=== PATIENT | male | born 1950 | race Caucasian/White ===

== ENCOUNTER → 2021-07-21 | Outpatient (CLI) | payer OTHER ==
[~2021-07-21] MED LIST: FISH OIL 1,001000 M2 PO; MULTI-VITAMIN1 EAC5 PO; OMEPRAZOLE40 MG PO; PRESERVISION A1 EAC2 PO; VITAMIN C1000 MG PO; VITAMINC500 PO
== END ==
LOC: LAB 12:27
PROVIDERS: ATTEND Student in an Organized Health Care Education/Training Program
DX: Z01.812 Encounter for preprocedural laboratory examination (principal); Z20.822 Contact with and (suspected) exposure to COVID-19

== ENCOUNTER → 2021-07-24 | Outpatient (CLI) | payer OTHER ==
[~2021-07-24] VITALS: Ht 175.3 cm; Wt 74.8 kg
--- NOTE | 2021-07-25 15:08 | PATH ---
[facility] [address] [place] [address] PATHOLOGY RPT PROCEDURE Name: KAMLESH HERMAN [facility] [id number] Admission: 07/24/21 Date of : 46 Discharge: Report #: [id number] Path Case #: [id number] [facility] Accession Number: [id number] . 01 Material submitted: . colon - DESCENDING COLON POLYP X2. Modifiers: descending, X2 . 01 Clinical history: . COLONOSCOPY HX OF TA, ACHALASIA . 02 Diagnosis: Descending colon polyps, polypectomy: - Fragments of colonic mucosa with nonspecific chronic inflammation. - Negative for adenomatous change or malignancy. (ANK:samaria; 07/25/2021) MBR 07/25/2021 1401 Local . 02 Electronically signed: . Deb Sifuentes MD, Pathologist NPI- [id number] . 01 Gross description: . The specimen is submitted in formalin, labeled "Kamlesh Herman, descending colon polyp". Received are 2 segments of pale mckeon tissue ranging in size from 0.3 to 0.4 cm in maximum dimensions. The specimen is submitted entirely in cassette A1. ([facility]; 07/24/2021) NRI/NRI 07/24/2021 2045 Local . 02 Pathologist provided ICD-10: K52.9 . 02 CPT . 478290 Specimen Comment: A courtesy copy of this report has been sent to [phone], [phone] Specimen Comment: [phone] Specimen Comment: Report sent to / DR DELGADO Performed at: [address], [place] [id number] MD Richar Santos MD Phone: [phone] Performed at: [address] [id number] MD Abigail Khan MD Phone: [phone]
== END | disposition home or self-care (01) ==
LOC: GI 09:37
PROVIDERS: ATTEND Internal Medicine Gastroenterology
DX: Z12.11 Encounter for screening for malignant neoplasm of colon (principal); Z86.010 Personal history of colon polyps; K52.9 Noninfective gastroenteritis and colitis, unspecified; R13.10 Dysphagia, unspecified; K22.89 Other specified disease of esophagus; K21.9 Gastro-esophageal reflux disease without esophagitis; E78.00 Pure hypercholesterolemia, unspecified; G47.30 Sleep apnea, unspecified; Z98.890 Other specified postprocedural states; Z79.899 Other long term (current) drug therapy
CPT/HCPCS: 62110; 62900